=== PATIENT | male | born 1955 | race Caucasian/White ===

== ENCOUNTER 2024-09-20 07:26 | Emergency (ER) | payer OTHER ==
[2024-09-20] MEDS ORDERED: dilTIAZem HCL 25 MG/5 ML VIAL IV ONE ×2 (07:44→08:01)
[2024-09-20 08:01] LABS: Absolute Basophils 0.1 K/uL (0-0.5); Absolute Eosinophils 0.1 K/uL (0-0.5); Absolute Lymphocytes (CBC) 3.3 K/uL (0.7-4.9); Absolute Monocytes 0.7 K/uL (0.1-1.3); Absolute Neutrophil 6.3 K/uL (1.8-8.0); Basophils % 0.7 % (0-1.3); Eosinophils % 1.4 % (0-4.4); Hematocrit 42.8 % (39.6-49.0); Hemoglobin 14.6 g/dL (13.6-17.9); Lymphocytes % 31.3 % (15.3-44.8); MCH 32.3 pg (27.0-35.0); MCHC 34.2 g/dL (32.0-36.0); MCV 94.4 fL (80-100); MPV 6.6 fL (7.6-11.3); Neutrophils % 59.6 % (41.7-73.7); Platelets 247 thou/uL (152-406); RBC Red Blood Cell Count 4.54 M/uL (4.33-5.43)
[2024-09-20] MEDS ORDERED: NA CHLORIDE 0.9% 500 ML ONE (08:01)
[2024-09-20 08:10] LABS: PT Prothrombin Time 11.9 SECONDS (9.4-12.5); Protime INR 1.13
--- NOTE | 2024-09-20 08:39 | RAD REPORT ---
EXAMINATION: ONE VIEW CHEST XR CLINICAL INDICATION: COUGH TECHNIQUE: Frontal chest projection is submitted. Examination is limited by patient positioning and t echnique. COMPARISON: No prior exam. FINDINGS: Mild bilateral pulmonary opacities are present likely representing pulmonary edema. The heart is uppe r limit of normal in size. No displaced fractures identified. IMPRESSION: Mild CHF.
--- NOTE | 2024-09-20 09:20 | ER ---
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 States he has been having A ll1 fib for the past 3-4 months. Currently wearing a heart monitor, stress test scheduled for tomorrow. Coronavirus screen: Client denies travel out of the [place] in the last 14 days. At this time, the client does not indicate any symptoms associated with coronavirus-19. Ebola Screen: Patient denies travel to an Ebola-affected area in the 21 days before illness onset. Initial Sepsis Screen: Does the patient meet any 2 criteria? No. Patient's initial sepsis screen is negative. Does the patient have a suspected source of infection? No. Patient's initial sepsis screen is negative. Risk Assessment: Do you want to hurt yourself or someone else? Patient reports no desire to harm self or others. Onset of symptoms was September 20, 2024. 07:35 Method Of Arrival: Ambulatory ll1 07:35 Acuity: FLORY 2 ll1 Triage Assessment: 07:37 General: Appears in no apparent distress. Behavior is calm, cooperative, appropriate ll1 for age. Pain: Denies pain. Cardiovascular: Reports palpitations. Historical: - Allergies: 07:34 No Known Allergies; ll1 - PMHx: 07:34 Myocardial infarction; Hypercholesterolemia; Atrial fibrillation; ll1 - PSHx: 07:34 None; ll1 - Immunization history:: Adult Immunizations up to date. - Infectious Disease History:: Denies. - Social history:: Smoking status: Patient denies any tobacco usage or history of. Screenin:51 [facility] ED Fall Risk Assessment (Adult) History of falling in the last 3 months, kc6 including since admission No falls in past 3 months (0 pts) Confusion or Disorientation No (0 pts) Intoxicated or Sedated No (0 pts) Impaired Gait No (0 pts) Mobility Assist Device Used No (0 pt) Altered Elimination No (0 pt) Score/Fall Risk Level 0 - 2 = Low Risk Oriented to surroundings, Maintained a safe environment, Educated pt \T\ family on fall prevention, incl call for assistance when getting out of bed. Abuse screen: Denies threats or abuse. Denies injuries from another. Nutritional screening: No deficits noted. Tuberculosis screening: No symptoms or risk factors identified. Assessment: 07:54 General: Appears in no apparent distress. comfortable, well groomed, well developed, kc6 Behavior is calm, cooperative, appropriate for age. Pain: Denies pain. Neuro: Level of Consciousness is awake, alert, obeys commands, Oriented to person, place, time, situation, Appropriate for age. Cardiovascular: Reports palpitations, Denies chest pain, shortness of breath, Capillary refill < 3 seconds Rhythm is atrial fibrillation with rapid ventricular response. Respiratory: Airway is patent Trachea midline Respiratory effort is even, unlabored, Respiratory pattern is regular, symmetrical. GI: No signs and/or symptoms were reported involving the gastrointestinal system. : No signs and/or symptoms were reported regarding the genitourinary system. EENT: No signs and/or symptoms were reported regarding the EENT system. Derm: No signs and/or symptoms reported regarding the dermatologic system. Skin is intact, is healthy with good turgor, Skin is pink, warm \T\ dry. Musculoskeletal: No signs and/or symptoms reported regarding the musculoskeletal system. Circulation, motion, and sensation intact. Range of motion: intact in all extremities. 09:04 Reassessment: Patient appears in no apparent distress at this time. No changes from kc6 previously documented assessment. Patient and/or family updated on plan of care and expected duration. Pain level reassessed. Patient is alert, oriented x 3, equal unlabored respirations, skin warm/dry/pink. 09:30 Reassessment: Patient appears in no apparent distress at this time. Patient and/or ph family updated on plan of care and expected duration. Pain level reassessed. Patient is alert, oriented x 3, equal unlabored respirations, skin warm/dry/pink. 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 Vital Signs: 07:35 BP 131 / 89; Pulse 150; Resp 16; Temp 97.6; Pulse Ox 97% on R/A; Weight 81.65 kg; ll1 Height 5 ft. 9 in. ; Pain 0/10; 07:53 BP 114 / 66; Pulse 134; Resp 16 S; Pulse Ox 98% on R/A; kc6 08:27 BP 92 / 51; Pulse 120; Resp 14 S; Pulse Ox 97% on R/A; kc6 08:36 BP 105 / 58; ec2 09:04 BP 109 / 96; Pulse 120; Resp 18 S; Pulse Ox 97% on R/A; kc6 09:30 BP 117 / 59; Pulse 127; Resp 18; Temp 97.8; Pulse Ox 99% on R/A; ph 07:35 Body Mass Index 26.58 (81.65 kg, 175.26 cm) ll1 07:35 Pain Scale: Adult ll1 ED Course: 07:27 Patient arrived in ED. mr 07:28 Arm band placed on Patient placed in an exam room, on a stretcher. ll1 07:30 Scooby Shankar MD is Attending Physician. ec2 07:37 Triage completed. ll1 07:38 Sarita Welch RN is Primary Nurse. ph 07:53 Patient has correct armband on for positive identification. Placed in gown. Bed in low kc6 position. Call light in reach. Side rails up X 1. quality assurance monitor final on. Pulse ox on. NIBP on. Door closed. Noise minimized. Lights dimmed. Pillow given. 07:53 Inserted saline lock: 18 gauge in right antecubital area, using aseptic technique. kc6 Blood collected. Flushed with 10 mL NS. Patient maintains SpO2 saturation greater than 95% on room air. 08:04 XRAY Chest (1 view) In Process Unspecified. EDMS 09:32 No provider procedures requiring assistance completed. IV discontinued, intact, ph bleeding controlled, No redness/swelling at site. Pressure dressing applied. Administered Medications: 07:53 Drug: Diltiazem IVP 10 mg IVP once; Over 2 minutes Route: IVP; Site: right antecubital; kc6 08:08 Follow up: Response: No adverse reaction; Cardiac rhythm is unchanged kc6 08:08 Drug: Diltiazem IVP 25 mg IVP once; Over 2 Minutes Route: IVP; Site: right antecubital; kc6 09:03 Follow up: Response: No adverse reaction; Cardiac rhythm is unchanged kc6 08:08 Drug: NS 0.9% IV 500 ml 500 ml IV at 1 bolus once; to be given as a bolus over 30 kc6 minutes Volume: 500 ml; Route: IV; Rate: 1 bolus; Site: right antecubital; 09:03 Follow up: Response: No adverse reaction; IV Status: Completed infusion; IV Intake: kc6 500ml 09:11 Not Given (Patient Refused): diltiazem 5 mg/hr IV at calculated rate See Administration ec2 Instructions; (standard dilution 125 mg diltiazem mixed in 125 mL NS; final concentration 1mg/mL). Recommended max rate 15 mg/hr; Titrate 5 mg/hr as often as every 15 minutes to acheive goal (see titration policy); Goal parameter HR less than 100 bpm Intake: 09:03 IV: 500ml; Total: 500ml. kc6 Outcome: 09:32 Patient left the ED. ph 09:32 AMA AMA form signed ph 09:32 Condition: stable Signatures: Dispatcher [employer] Brianda Stauffer, Reg Reg mr Sarita Welch, TIMOTHY RN Erica Winslow RN RN 1 Yue Burgess RN RN kc6 Scooby Shankar MD MD ec2
--- NOTE | 2024-09-20 09:20 | EDPHYS ---
Physician Documentation [facility] Name: Maynor Avila Age: 69 yrs Sex: Male : 1955 Arrival Date: 09/20/2024 Time: 07:26 Bed 7 Private MD: ED Physician Scooby Shankar HPI: 09/20 07:39 This 69 yrs old Male presents to ER via Ambulatory with complaints of AFIB. ec2 07:39 Patient arrives today for evaluation of A-fib. States that he has a history of atrial ec2 fibrillation, has more frequently gone into A-fib the past several months. Patient reports he is on Eliquis chronically. Denies any chest pain, denies difficulty breathing.. Historical: - Allergies: 07:34 No Known Allergies; ll1 - PMHx: 07:34 Myocardial infarction; Hypercholesterolemia; Atrial fibrillation; ll1 - PSHx: 07:34 None; ll1 - Immunization history:: Adult Immunizations up to date. - Infectious Disease History:: Denies. - Social history:: Smoking status: Patient denies any tobacco usage or history of. ROS: 07:39 Constitutional: as per hpi ec2 Exam: 07:39 Constitutional: GEN: NAD Head: atraumatic Eyes: EOMI Ears: External ears are ec2 normal. CV: Tachycardia, regular rhythm LUNGS: no respiratory distress ABD: non-distended SKIN: no evidence of rashes MSK: no evidence of trauma Vital Signs: 07:35 BP 131 / 89; Pulse 150; Resp 16; Temp 97.6; Pulse Ox 97% on R/A; Weight 81.65 kg; ll1 Height 5 ft. 9 in. ; Pain 0/10; 07:53 BP 114 / 66; Pulse 134; Resp 16 S; Pulse Ox 98% on R/A; kc6 08:27 BP 92 / 51; Pulse 120; Resp 14 S; Pulse Ox 97% on R/A; kc6 08:36 BP 105 / 58; ec2 09:04 BP 109 / 96; Pulse 120; Resp 18 S; Pulse Ox 97% on R/A; kc6 09:30 BP 117 / 59; Pulse 127; Resp 18; Temp 97.8; Pulse Ox 99% on R/A; ph 07:35 Body Mass Index 26.58 (81.65 kg, 175.26 cm) ll1 07:35 Pain Scale: Adult ll1 MDM: 07:30 Medical Screening Exam initiated ec2 07:40 Data reviewed: vital signs, nurses notes. ED course: Patient arrives today for [facility] evaluation of A-fib. Examination is revealing for a tachycardic individual. Will obtain a cardiac workup. Will give the patient diltiazem. Differential diagnosis considered includes electrolyte disturbances, ACS, atrial fibrillation, PE. 07:47 ED course: EKG independently reviewed and interpreted by me, shows atrial fibrillation, ec2 rate of 149, no acute ST segment elevations, intervals are nonactionable.. 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 I instructed him that I will be best to be admitted here given potential for deterioration however the patient was insistent. Will have the patient leave AGAINST MEDICAL ADVICE, he expressed understanding regarding risk and benefits.. 09/20 07:38 Order name: Basic Metabolic Panel ec2 09/20 07:38 Order name: CBC with Diff; Complete Time: 08:57 ec2 09/20 07:38 Order name: NT PRO-BNP ec2 09/20 07:38 Order name: PT-INR; Complete Time: 08:57 09/20 07:38 Order name: Troponin HS 2 09/20 07:38 Order name: XRAY Chest (1 view); Complete Time: 08:57 09/20 07:38 Order name: EKG; Complete Time: 07:38 ec09/20 07:38 Order name: Cardiac monitoring; Complete Time: 07:52 ec09/20 07:38 Order name: EKG - Nurse/Tech; Complete Time: 07:52 ec09/20 07:38 Order name: IV Saline Lock; Complete Time: 07:52 ec09/20 07:38 Order name: Labs collected and sent; Complete Time: 07:52 ec09/20 07:38 Order name: O2 Per Protocol; Complete Time: 07:52 09/20 07:38 Order name: O2 Sat Monitoring; Complete Time: 07:52 ec09/20 08:07 Order name: Labs - recollect needed: green; Complete Time: 08:27 bc6 Administered Medications: 07:53 Drug: Diltiazem IVP 10 mg IVP once; Over 2 minutes Route: IVP; Site: right antecubital; 6 08:08 Follow up: Response: No adverse reaction; Cardiac rhythm is unchanged [facility] 08:08 Drug: Diltiazem IVP 25 mg IVP once; Over 2 Minutes Route: IVP; Site: right antecubital; [facility] 09:03 Follow up: Response: No adverse reaction; Cardiac rhythm is unchanged [facility] 08:08 Drug: NS 0.9% IV 500 ml 500 ml IV at 1 bolus once; to be given as a bolus over 30 kc6 minutes Volume: 500 ml; Route: IV; Rate: 1 bolus; Site: right antecubital; 09:03 Follow up: Response: No adverse reaction; IV Status: Completed infusion; IV Intake: kc6 500ml 09:11 Not Given (Patient Refused): diltiazem 5 mg/hr IV at calculated rate See Administration ec2 Instructions; (standard dilution 125 mg diltiazem mixed in 125 mL NS; final concentration 1mg/mL). Recommended max rate 15 mg/hr; Titrate 5 mg/hr as often as every 15 minutes to acheive goal (see titration policy); Goal parameter HR less than 100 bpm Disposition Summary: 09/20/24 09:19 Left Against Medical Advice Problem: an ongoing problem ec2 Symptoms: are unchanged ec2 Condition: Stable ec2 Diagnosis - Persistent atrial fibrillation ec2 Followup: ec2 - With: Private Physician - When: - Reason: Re-evaluation by your physician Discharge Instructions: - Discharge Summary Sheet ec2 - Atrial Fibrillation, [id number] ec2 Signatures: Dispatcher [employer] Erica Hand RN RN ll1 Yue Burgess RN RN kc6 Georgette Cope 6 Scooby Shankar MD MD ec2
[2024-09-20 09:44] VITALS: BP 117/59; TEMP 97.8; O2SAT 99
[2024-09-20 09:57] LABS: Anion Gap 9.3 mEq/L (5.0-15.0); Potassium 4.3 mEq/L (3.5-5.1); Troponin High Sensitivity 45.4 pg/mL (<58.9)
[2024-09-20] MEDS ORDERED: DILTIAZEM INJ 125 MG/25 ML 125 MG in NA CHLORIDE 0.9% 100 ML IV SCH (10:00)
== END 2024-09-20 09:32 | disposition left against medical advice (07) ==
LOC: ER 07:26
DX: I48.19 Other persistent atrial fibrillation (principal); Z53.29 Procedure and treatment not carried out because of patient's decision for other reasons; E78.00 Pure hypercholesterolemia, unspecified; I25.2 Old myocardial infarction
CPT/HCPCS: 93005; 85025; 80048; 36415; 85610; 84484; 83880; 71045; J7040